=== PATIENT | female | born 1945 | race Caucasian/White ===

== ENCOUNTER 2018-09-05 12:05 | Emergency (ER) | payer MEDICARE, OTHER, SELFPAY ==
[2018-09-05 12:11] VITALS: BP 153/100; PULSE 90; RESP 18; TEMP 36.6; O2SAT 100
[2018-09-05 13:00] VITALS: BP 154/45
--- NOTE | 2018-09-05 13:12 | PC.NURSE ---
Addendum entered by Silvina Shrestha R.N. 09/05/18 14:41: right arm and right leg. Original Note: pt is having chorea movements of her left leg and left arm. reports she was seen on the at [facility]. Involuntary jerking and writhing have gotten worse over the past couple of days. pt has not seen a neurologist yet.
--- NOTE | 2018-09-05 13:15 | ED_ITS ---
HPI - Neuro Symptoms/Deficit General Chief Complaint: Neuro Symptoms/Deficit Stated Complaint: CHOREIFORM MOVEMENTS GETTING WORSE Time Seen by Provider: 09/05/18 12:51 Source: patient and other (friends) Mode of arrival: wheelchair Limitations: no limitations History of Present Illness HPI Narrative: 73-year-old female comes in with complaint about 3 weeks worsening tremor in her upper lower extremity on the right. Patient states it only seems to affect the right side. It sort of the dancing motion that she cannot control. Patient states that this is been slowly progressing. She states she has been having some memory issues. Her friends at bedside state is been progressing over several years initially was mostly just short-term but seems to be getting increasingly into longer-term memory. There is a report of a bipolar history but this is a touch she situation for the patient. She does state that she has been having some mood issues recently and she has been feeling depressed but denies any suicidal ideation. Patient has been having multiple falls secondary to the movement in her upper and lower extremities. She was seen at [facility] on the 30 of August had a head CT and lab work which did not show any acute changes of that they were told her looks like there might be some old changes. 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 The patient's lab work which includes a CMP does not note any acute changes she is not hyponatremic, CBC is also normal. Patient is post have a follow-up on the with primary care but she does not have any neurologic follow-up. Patient does not have any known family history of similar disorders. She states her mom lived into her 90s and was healthy. Her mom was also a nurse so she would expect her to tell her if she had any major medical issues. She does take trazodone, Flexeril and paroxetine. She has not had any new medication changes. Related Data Home Medications Medication Instructions Recorded Confirmed metoprolol succinate 09/05/18 paroxetine HCl 20 mg PO DAILY 09/05/18 09/05/18 trazodone 50 mg PO DAILY 09/05/18 09/05/18 Previous Rx's Medication Instructions Recorded clonazepam 0.25 mg PO BID PRN #14 tab 09/05/18 Review of Systems Review of Systems ROS Unobtainable: All systems reviewed & are unremarkable except as noted in HPI and below Constitutional Denies chills, Denies fever(s), Reports frequent falls, Denies headache(s) and Denies weakness ENT Ears, Nose, Mouth, and Throat: Denies dizziness and Denies headache(s) Cardiovascular Denies chest pain, Denies syncope, Denies irregular heart rhythm, Denies lightheadedness, Denies palpitations, Denies dyspnea, Denies dyspnea on exertion and Denies orthopnea Respiratory Denies cough, Denies dyspnea, Denies dyspnea on exertion and Denies wheezing Gastrointestinal Gastrointestinal: Denies abdominal pain, Denies change in bowel habits, Denies diarrhea, Denies nausea and Denies vomiting Genitourinary Denies hematuria, Denies flank pain, Denies urinary incontinence and Denies urinary urgency Musculoskeletal Reports as per HPI, Reports abnormal gait, Denies limited range of motion, Denies muscle weakness, Denies numbness, Denies radiating pain into limb and Denies tingling Integumentary/Breasts Denies rash Neurologic Reports as per HPI, Reports abnormal movements, Reports abnormal speech (slurred ), Reports abnormal gait, Denies dizziness, Denies syncope, Reports frequent falls, Denies headache(s), Denies focal weakness, Reports memory loss, Denies numbness, Denies seizure-like activity, Denies sensory deficit, Denies tingling and Denies weakness Psychiatric Reports depression, Reports memory loss, Denies hallucinations, Denies homicidal ideation and Denies suicidal ideation Endocrine Denies palpitations Allergic/Immunologic Denies wheezing PFSH Medical History Hypertension (Acute) Mood disorder (Acute) Exam Narrative Exam Narrative: GEN: Thin elderly female, alert and oriented x 3, patient appears to be in mild distress. HEENT: Atraumatic, pupils are equal round reactive to light, extraocular movements are intact, nares are clear, TMs are clear with no fluid, there is no conjunctival pallor. Throat is clear without any exudates, erythema, tonsillar enlargement or uvular deviation, mildly slurred speech. No facial droop appreciated. HEART: Regular rate and rhythm without murmur, clicks, rubs. 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 She does have some decreased movement with intentional movements but it is still present. Patient is able to perform heel-lebron and finger-nose with difficulty second to uncontrolled motion but does not seem to have ataxia with fine motor movement. No sensory changes. She has had some slurred speech which I am able to appreciate, no aphasia. Psych: depression, no suicidal, homicidal ideation. Initial Vital Signs Initial Vital Signs: Vital Signs Temperature 97.9 F 09/05/18 12:11 Pulse Rate 90 09/05/18 12:11 Respiratory Rate 18 09/05/18 12:11 Blood Pressure 153/100 H 09/05/18 12:11 Pulse Oximetry 100 09/05/18 12:11 Course Orders Ordered: ED Orders 09/05/18 13:10 Urine Drug Screen, Rapid Stat 09/05/18 13:50 Complete Blood Count AUTO DIFF Stat Comprehensive Metabolic Panel Stat Thyroid Stimulating Hormone Stat 09/05/18 15:00 Ceruloplasmin Stat Copper Stat Iron Profile (w/ % Saturation) Stat Discontinued Medications Clonazepam (Klonopin) 1 mg PO NOW ONE Stop: 09/05/18 13:15 Last Admin: 09/05/18 13:31 Dose: 1 mg Vital Signs - 8 hr 09/05/18 12:11 09/05/18 13:00 09/05/18 14:00 Temperature 97.9 F Pulse Rate 90 Respiratory Rate 18 Blood Pressure 153/100 H Blood Pressure [Right Arm] 154/45 H 111/80 Pulse Oximetry 100 09/05/18 15:17 Temperature Pulse Rate 63 Respiratory Rate Blood Pressure Blood Pressure [Right Arm] Pulse Oximetry 96 MDM - Neuro Symptoms/Deficit Lab Data Attestation: I reviewed the patient's lab results. Result diagrams: 09/05/18 13:50 09/05/18 13:50 Lab Results 09/05/18 09/05/18 09/05/18 Range/Units 13:10 13:50 13:50 WBC 8.1 (4.5-11.0) X10^3/uL RBC 4.45 (4.0-5.2) X10^6/uL Hgb 13.7 (12.0-16.0) g/dL Hct 40.2 (36-46) % MCV 90.3 (80-100) fL MCH 30.8 (26-34) PG MCHC 34.1 (30-36) % RDW 13.4 (11.6-14.8) % Plt Count 222 (150-400) X10^3/uL Neut % (Auto) 69.1 (50-75) % Lymph % (Auto) 22.6 L (25-40) % [place] % (Auto) 7.0 (3-14) % Eos % (Auto) 0.6 L (2-4) % Baso % (Auto) 0.7 (0-2) % Neut # (Auto) 5600 (8379-3026) /uL Lymph # (Auto) 1800 (4926-3367) /uL [place] # (Auto) 600 (0-900) /uL Eos # (Auto) 0 (0-450) /uL Baso # (Auto) 100 (0-100) /uL Sodium 139 (137-145) mmol/L Potassium 4.0 (3.4-5.1) mmol/L Chloride 106 (98-107) mmol/L Carbon Dioxide 22 (22-32) mmol/L BUN 15 (7-17) mg/dL Creatinine 0.70 (0.52-1.04) mg/dL Estimated GFR > 60.0 (>60) mL/min BUN/Creatinine Ratio 21.4 (6-22) Glucose 104 (80-110) mg/dL Calcium 9.3 (8.4-10.2) mg/dL Iron (37-170) ug/dL TIBC (265-497) ug/dL % Saturation (15-50) % Transferrin (206-381) mg/dL Total Bilirubin 0.6 (0.2-1.3) mg/dL AST 23 (14-36) IU/L ALT 26 (9-52) IU/L Alkaline Phosphatase 58 (38-126) U/L Total Protein 7.2 (6.3-8.2) g/dL Albumin 4.3 (3.5-5.0) g/dL Globulin 2.9 (1.7-4.1) g/dL Albumin/Globulin Ratio 1.5 (1.0-2.8) TSH (0.47-4.68) uIU/mL Urine Opiates Screen Negative (Negative) Ur Oxycodone Screen Negative (Negative) Urine Methadone Screen Negative (Negative) Ur Barbiturates Screen Negative (Negative) U Tricyclic Antidepress Negative (Negative) Ur Phencyclidine Scrn Negative (Negative) Ur Amphetamines Screen Negative (Negative) U Methamphetamines Scrn Negative (Negative) Ur MDMA Scrn (Ecstasy) Negative (Negative) U Benzodiazepines Scrn Negative (Negative) Urine Cocaine Screen Negative (Negative) U Marijuana (THC) Screen Negative (Negative) 09/05/18 09/05/18 Range/Units 13:50 15:00 WBC (4.5-11.0) X10^3/uL RBC (4.0-5.2) X10^6/uL Hgb (12.0-16.0) g/dL Hct (36-46) % MCV (80-100) fL MCH (26-34) PG MCHC (30-36) % RDW (11.6-14.8) % Plt Count (150-400) X10^3/uL Neut % (Auto) (50-75) % Lymph % (Auto) (25-40) % [place] % (Auto) (3-14) % Eos % (Auto) (2-4) % Baso % (Auto) (0-2) % Neut # (Auto) (7375-9175) /uL Lymph # (Auto) (3063-8718) /uL [place] # (Auto) (0-900) /uL Eos # (Auto) (0-450) /uL Baso # (Auto) (0-100) /uL Sodium (137-145) mmol/L Potassium (3.4-5.1) mmol/L Chloride (98-107) mmol/L Carbon Dioxide (22-32) mmol/L BUN (7-17) mg/dL Creatinine (0.52-1.04) mg/dL Estimated GFR (>60) mL/min BUN/Creatinine Ratio (6-22) Glucose (80-110) mg/dL Calcium (8.4-10.2) mg/dL Iron 84 (37-170) ug/dL TIBC 298 (265-497) ug/dL % Saturation 28 (15-50) % Transferrin 232 (206-381) mg/dL Total Bilirubin (0.2-1.3) mg/dL AST (14-36) IU/L ALT (9-52) IU/L Alkaline Phosphatase (38-126) U/L Total Protein (6.3-8.2) g/dL Albumin (3.5-5.0) g/dL Globulin (1.7-4.1) g/dL Albumin/Globulin Ratio (1.0-2.8) TSH 1.98 (0.47-4.68) uIU/mL Urine Opiates Screen (Negative) Ur Oxycodone Screen (Negative) Urine Methadone Screen (Negative) Ur Barbiturates Screen (Negative) U Tricyclic Antidepress (Negative) Ur Phencyclidine Scrn (Negative) Ur Amphetamines Screen (Negative) U Methamphetamines Scrn (Negative) Ur MDMA Scrn (Ecstasy) (Negative) U Benzodiazepines Scrn (Negative) Urine Cocaine Screen (Negative) U Marijuana (THC) Screen (Negative) Urine Dip Bedside Urine Glucose Negative Bedside Urine Bilirubin - Negative Bedside Urine Ketone +/- 5 Urine Specific [place] 1.020 Bedside Urine Occult Blood - Negative Bedside Urine pH 6.0 Bedside Urine Protein +/- 15 Bedside Urine Urobilinogen - Negative Bedside Urine Nitrite - Negative Bedside Urine Leukocytes - Negative Esterase MDM Narrative Medical decision making narrative: Patient's head CT, CBC and CMP were reviewed with no acute changes. Patient had some chronic microvascular changes, report shows no hemorrhage, no mass, midline shift or CT findings of acute infarction. Mclaughlin-white differentiation is distinct there were extensive diffuse chronic microangiopathic white matter changes which are evident and unchanged. No subdural epidural collections. Ventricles and cortical sulci are large but consistent with age-related tissue loss. Patient's exam findings are consistent with her ER visit on August 30. Discussed with Dr. honeycutt from Neurology and [place]. He recommends adding a sural plasma, cough for as well as an iron profile. We reviewed imaging, patient's exam findings today as well as basic lab work. He will happily follow up with the patient. They will contact her primary care to make sure there is referral. I spoke with the patient and some friends at bedside who are helping her with her daily care. They will help to follow-up and make sure appointment is established. Patient was given the referral number for neurology. Clonazepam did seem to improve her symptoms but also made her quite sleepy. Patient was given a prescription for a low-dose at 0.25 mg. We did discuss this can increase her fall risk. Discharge Plan Departure Patient Disposition: Home Clinical Impression: Abnormal involuntary movement Discharge Date/Time: 09/05/18 15:38 Interventions: ED Discharge Assessment Last Done: 09/05/18 15:38 Activity Restrictions/Additional Instructions: Follow up with your primary care physician, call today regarding follow up appointment. I spoke with Neurology, Dr. Honeycutt in [place]. He is going to have his office contact your primary care to see about getting a referral. Call the neurology office tomorrow if you have not heard anything back to make sure that you are being set up for the referral. Continue your home medications as prescribed. You may try clonazepam if you find this medication helpful for your movement issues. You may take this medication every 8 hr as needed. An iron profile, cerumen plasma and copper level were sent today these are still pending. Return to the emergency department for new weakness, sudden severe headaches, new vision changes, shortness of breath, chest pain or pressure, new or persistent vomiting or other new or concerning symptoms. Prescriptions: New clonazepam 0.5 mg tablet 0.25 mg PO BID PRN (Reason: movement disorder) Qty: 14 RF: 0 No Action trazodone 50 mg tablet 50 mg PO DAILY RF: 0 metoprolol succinate 50 mg tablet extended release 24 hr RF: 0 paroxetine HCl 20 mg tablet 20 mg PO DAILY RF: 0 Referrals: Marco A Honeycutt MD [Non-Staff] -
[2018-09-05] MEDS: clonazePAM 0.5 MG TABLET 1 MG PO (13:31)
[2018-09-05 13:46] LABS: Urine Amphetamines Negative (Negative); Urine Barbiturates Negative (Negative); Urine Benzodiazepines Negative (Negative); Urine Cocaine Negative (Negative); Urine MDMA Negative (Negative); Urine Methadone Negative (Negative); Urine Methamphetamines Negative (Negative); Urine Morphine/Opi cutoff 2000 Negative (Negative); Urine Oxycodone Negative (Negative); Urine Phencyclidine Negative (Negative); Urine Tetrahydrocannabinol Negative (Negative); Urine Tricyclic Antidepressant Negative (Negative)
[2018-09-05 13:56] LABS: Add Manual Diff / Slide Review NO; Basophils Absolute Auto 100 /uL (0-100); Basophils Percent Auto 0.7 % (0-2); Eosinophils Absolute Auto 0 /uL (0-450); Eosinophils Percent Auto 0.6 % (2-4); Hematocrit 40.2 % (36-46); Hemoglobin 13.7 g/dL (12.0-16.0); Lymphocytes Absolute Auto 1800 /uL (1100-4500); Lymphocytes Percent Auto 22.6 % (25-40); Mean Corpuscular HGB Conc 34.1 % (30-36); Mean Corpuscular Hemoglobin 30.8 PG (26-34); Mean Corpuscular Volume 90.3 fL (80-100); Monocytes Absolute Auto 600 /uL (0-900); Neutrophils Absolute Auto 5600 /uL (1500-7000); Neutrophils Percent Auto 69.1 % (50-75); Platelet Count 222 X10^3/uL (150-400); Red Blood Cell Count 4.45 X10^6/uL (4.0-5.2); Red Cell Distribution Width 13.4 % (11.6-14.8); White Blood Cell Count 8.1 X10^3/uL (4.5-11.0)
[2018-09-05 14:00] VITALS: BP 111/80
[2018-09-05 14:07] LABS: Alanine Aminotransferase 26 IU/L (9-52); Albumin 4.3 g/dL (3.5-5.0); Albumin Globulin Ratio 1.5 (1.0-2.8); Alkaline Phosphatase 58 U/L (38-126); Aspartate Aminotransferase 23 IU/L (14-36); BUN Creatinine Ratio 21.4 (6-22); Bilirubin Total 0.6 mg/dL (0.2-1.3); Blood Urea Nitrogen 15 mg/dL (7-17); Calcium 9.3 mg/dL (8.4-10.2); Carbon Dioxide 22 mmol/L (22-32); Chloride 106 mmol/L (98-107); Estimated Glomerular Filt Rate > 60.0 mL/min (>60); Globulin 2.9 g/dL (1.7-4.1); Glucose 104 mg/dL (80-110); HEMOLYSIS < 15 (0-50); Sodium 139 mmol/L (137-145); Total Protein 7.2 g/dL (6.3-8.2)
[2018-09-05 15:03] LABS: Thyroid Stimulating Hormone 1.98 uIU/mL (0.47-4.68)
[2018-09-05 15:17] VITALS: PULSE 63; O2SAT 96
[2018-09-05 15:31] LABS: HEMOLYSIS < 15 (0-50); Iron 84 ug/dL (37-170)
[2018-09-05 15:41] LABS: Percent Iron Saturation 28 % (15-50); Total Iron Binding Capacity 298 ug/dL (265-497); Transferrin 232 mg/dL (206-381)
[2018-09-07 15:05] LABS: Ceruloplasmin 29 mg/dL (18-53)
== END 2018-09-05 15:38 | disposition home or self-care (01) ==
PROVIDERS: Emergency Provider Emergency Medicine
DX: R25.9 Unspecified abnormal involuntary movements (principal)
CPT/HCPCS: 36415; 80053; 80305; 81003; 82390; 82525; 83540; 83550; 84443; 85025; 99283; 99291

== ENCOUNTER → 2018-12-19 11:15 | Outpatient (CLI) | payer MEDICARE, OTHER, SELFPAY ==
--- NOTE | 2018-12-19 | DI.MRI.S_ITS ---
PROCEDURE: MR HEAD/BRAIN WO/W CON INDICATIONS: COGNITIVE DECLINE TECHNIQUE: Noncontrast axial T1 spin echo, axial T2 fast spin echo, sagittal and axial FLAIR, coronal T2 fast spin echo, axial gradient echo, axial diffusion and ADC through the brain. After the administration of contrast, axial and coronal 3D VIBE or T1 spin echo with fat saturation through the brain. COMPARISON: None. FINDINGS: Image quality: Excellent. CSF Spaces: Basal cisterns are patent. No extra-axial fluid collections. Ventricles are normal in size and shape. Brain: No midline shift. No intracranial bleeds or masses. No abnormal intracranial enhancement. The brainstem appears normal. Diffusion-weighted images demonstrate no acute ischemic insults. No focal chronic ischemic insults but there is relatively extensive microvascular atherosclerotic change in the deep white matter each hemisphere, with elevated flair signal and generalized volume loss.. Normal intravascular flow voids are present. Skull and face: Calvarial marrow is normal in signal. Orbits appear normal. Sinuses: Sinuses and mastoids appear clear except for chronic appearing moderate mucosal thickening at the left maxillary sinus. No air-fluid levels are seen that would indicate presence of acute sinusitis. IMPRESSION: No acute disease, but relatively prominent microvascular atherosclerotic change is seen in the deep white matter each hemisphere, with volume loss. Incidental note is made of moderate mucosal thickening involving the left maxillary sinus, chronic in appearance. No acute-appearing air-fluid level is seen. Dictated by: Dk Marcus M.D. on 12/19/2018 at 13:13 Approved by: Dk Marcus M.D. on 12/19/2018 at 13:16
--- NOTE | 2018-12-19 | DI.MRI.S_ITS ---
PROCEDURE: MR ANGIO HEAD WO CON INDICATIONS: COGNITIVE DECLINE TECHNIQUE: Noncontrast axial 3-D [id number] MR angiogram, with 3-dimensional maximum intensity projection (MIP) reformats of the internal carotid arteries and posterior circulation then performed. COMPARISON: None. FINDINGS: Image quality: Excellent. Anterior circulation: Intracranial internal carotid arteries demonstrate normal size and intraluminal flow signal. The flow within the paired anterior cerebral arteries is normal and symmetric. The flow within the middle cerebral arteries is normal and symmetric. The anterior communicating artery is seen. No stenoses, occlusions, or aneurysms. Posterior circulation: Visualized portions of the vertebral arteries demonstrate normal caliber, and join to form a normal appearing basilar artery. 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 No stenoses, occlusions, or aneurysms. IMPRESSION: No aneurysm or occlusion found. 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 As noted above excellent perfusion through the left posterior communicating artery from the left [place] is present in this area. Dictated by: Dk Marcus M.D. on 12/19/2018 at 13:44 Approved by: Dk Marcus M.D. on 12/19/2018 at 13:46
== END ==
PROVIDERS: Visit Provider Psychiatry & Neurology Neurology
DX: R41.89 Other symptoms and signs involving cognitive functions and awareness (principal); J32.0 Chronic maxillary sinusitis
CPT/HCPCS: 70544; 70553